=== PATIENT | female | born 1950 | race Caucasian/White ===

== ENCOUNTER 2022-08-16 13:19 | Day surgery (SDC) | payer MEDICARE, OTHER ==
[2022-08-16] MEDS ORDERED: Xylocaine 1% Vial 30 ML PF IJ ONE (13:20)
[2022-08-16] MEDS ORDERED: BUPIVACAINE 0.5% VIAL IJ ONE (13:20)
--- NOTE | 2022-08-16 20:00 | XRAY ---
Indication: Left knee genicular nerve block. Intraoperative fluoroscopy provided for 20 seconds. 2 digital spot image left knee submitted for interpretation demonstrates anterior needle tips projecting medial/lateral supracondylar and medial tibial plateau. Correlate with intraoperative findings/report.
--- NOTE | 2022-08-16 20:00 | XRAY ---
Indication: Right knee genicular nerve block. Intraoperative fluoroscopy provided for 13 seconds. 2 digital spot image right knee submitted for interpretation demonstrates anterior needle tips projecting medial/lateral supracondylar and medial tibial plateau. Correlate with intraoperative findings/report.
--- NOTE | 2022-08-16 20:02 | XRAY ---
13 seconds of fluoroscopy was used in surgery for a right knee genicular nerve block.
--- NOTE | 2022-08-16 20:03 | XRAY ---
20 seconds of fluoroscopy was used in surgery for a left knee genicular nerve block.
== END 2022-08-16 16:20 | disposition home or self-care (01) ==
LOC: SDC-PAIN 13:19
PROVIDERS: ATTEND Psychiatry & Neurology Pain Medicine
DX: M17.0 Bilateral primary osteoarthritis of knee (principal); Z79.899 Other long term (current) drug therapy
CPT/HCPCS: 64454; 73560; 77002; J2001

== ENCOUNTER 2022-08-23 10:01 | Day surgery (SDC) | payer MEDICARE, OTHER ==
[2022-08-23] MEDS ORDERED: XYLOCAINE-MPF 1% 5ML SDV IJ ONE (10:02)
[2022-08-23] MEDS ORDERED: Depo-Medrol 40 MG/ML IM ONE (10:02)
[2022-08-23] MEDS ORDERED: BUPIVACAINE 0.5% VIAL IJ ONE (10:02)
--- NOTE | 2022-08-23 14:03 | XRAY ---
Indication: Right knee genicular nerve ablation. Intraoperative fluoroscopy provided for 35 seconds. 3 digital spot images right knee submitted for interpretation demonstrates anterior needle tips projecting medial/lateral supracondylar and medial tibial plateau. Correlate with intraoperative findings/report.
[2022-08-23] MEDS ORDERED: Lactated Ringers 1,000 ML IV ONE (16:30)
--- NOTE | 2022-08-23 16:44 | XRAY ---
35 seconds of fluoroscopy was used in surgery for a right genicular nerve ablation.
== END 2022-08-23 13:05 | disposition home or self-care (01) ==
LOC: SDC-PAIN 10:01
PROVIDERS: ATTEND Psychiatry & Neurology Pain Medicine
DX: M17.11 Unilateral primary osteoarthritis, right knee (principal)
CPT/HCPCS: 64624; 73560; 77002; J1030

== ENCOUNTER 2022-08-30 13:38 | Day surgery (SDC) | payer MEDICARE, OTHER ==
[2022-08-30] MEDS ORDERED: Depo-Medrol 40 MG/ML IM ONE (13:39)
[2022-08-30] MEDS ORDERED: BUPIVACAINE 0.5% VIAL IJ ONE (13:39)
[2022-08-30] MEDS ORDERED: LIDOCAINE HCL 1% 50 MG/5 ML VL PF IJ ONE (13:39)
[2022-08-30] MEDS ORDERED: Lactated Ringers 1,000 ML IV ONE ×2 (15:57→17:21)
--- NOTE | 2022-08-30 16:44 | XRAY ---
Indication: Left knee genicular nerve ablation. Intraoperative fluoroscopy provided for 23. 4 digital spot images left knee submitted for interpretation demonstrates anterior needle tips projecting medial/lateral supracondylar and medial tibial plateau. Correlate with intraoperative findings/report.
--- NOTE | 2022-08-30 17:23 | XRAY ---
23 seconds of fluoroscopy was used in surgery for a left genicular nerve ablation.
== END 2022-08-30 16:25 | disposition home or self-care (01) ==
LOC: SDC-PAIN 13:38
PROVIDERS: ATTEND Psychiatry & Neurology Pain Medicine
DX: M17.12 Unilateral primary osteoarthritis, left knee (principal); Z79.899 Other long term (current) drug therapy
CPT/HCPCS: 64624; 73560; 77002; J1030; J2001; Q9966

== ENCOUNTER 2023-04-03 05:56 | Day surgery (SDC) | payer MEDICARE, OTHER ==
[2023-04-03] MEDS ORDERED: Epinephrine Preservative Free 1 MG/ML IJ ONE (05:57)
[2023-04-03] MEDS ORDERED: Lactated Ringers 1,000 ML IV ONE (06:17)
[2023-04-03] MEDS ORDERED: NON-FORMULARY ITEM OP ONE (07:00)
[2023-04-03] MEDS ORDERED: cefUROXime sodium 0.005 GM in Sodium Chloride Flush 30 ML*** 0.5 ML IJ ONE (07:00)
[2023-04-03] MEDS ORDERED: TETRACAINE 0.5% STERI-UNIT SOL OP ONE ×2 (07:00)
[2023-04-03] MEDS ORDERED: BETADINE 5% OPHTHALMIC 30 ML OP ONE (07:00)
[2023-04-03] MEDS ORDERED: Lactated Ringers 1,000 ML IV SCH (07:00)
[2023-04-03] MEDS ORDERED: Ak-Dilate OPHTHALMIC*** 1.065 ML, Cyclogyl 1% OPHTH SOL 1.065 ML, GATIFLOXACIN 0.5% OPH... OP ONE ×4 (07:00)
[2023-04-03] MEDS ORDERED: Pepcid 20 MG VIAL IV ONE (07:34)
[2023-04-03] MEDS ORDERED: DIPRIVAN 200 MG/20 ML IV ONE (08:31)
[2023-04-03] MEDS ORDERED: Zofran 4 MG/2 ML VIAL ONE (08:32)
[2023-04-03] MEDS ORDERED: Zofran 4 MG/2 ML VIAL IV PRN (09:00)
[2023-04-03] MEDS ORDERED: ACETAZOLAMIDE 250 MG TABLET PO ONE (09:00)
[2023-04-03 09:02] VITALS: BP 138/97; PULSE 83; O2SAT 96
== END 2023-04-03 09:09 | disposition home or self-care (01) ==
LOC: SDC 05:56
PROVIDERS: ATTEND Ophthalmology
DX: H25.812 Combined forms of age-related cataract, left eye (principal)
CPT/HCPCS: 99100; C1780; J0171; J2405; J2704; A9270-GY

== ENCOUNTER 2023-05-01 09:37 | Day surgery (SDC) | payer MEDICARE, OTHER ==
[~2023-05-01 09:37] MED LIST: Ak-Dilate OPHTHALMIC*** 1.065 ML, Cyclogyl 1% OPHTH SOL 1.065 ML, GATIFLOXACIN 0.5% OPH... OP ONE; BETADINE 5% OPHTHALMIC 30 ML OP ONE; Lactated Ringers 1,000 ML IV SCH; NON-FORMULARY ITEM OP ONE; TETRACAINE 0.5% STERI-UNIT SOL OP ONE; cefUROXime sodium 0.005 GM in Sodium Chloride Flush 30 ML*** 0.5 ML IJ ONE
[2023-05-01] MEDS ORDERED: Pepcid 20 MG VIAL IV ONE ×2 (10:32→10:38)
[2023-05-01] MEDS ORDERED: Zofran 4 MG/2 ML VIAL ONE (10:37)
[2023-05-01] MEDS ORDERED: Lactated Ringers 1,000 ML IV ONE (10:39)
[2023-05-01] MEDS ORDERED: Zofran 4 MG/2 ML VIAL IV PRN (11:30)
[2023-05-01] MEDS ORDERED: ACETAZOLAMIDE 250 MG TABLET PO ONE (11:30)
[2023-05-01] MEDS ORDERED: DIPRIVAN 200 MG/20 ML IV ONE (12:32)
[2023-05-01 12:57] VITALS: RESP 16; TEMP 98.2; O2SAT 94
[2023-05-01 13:09] VITALS: BP 142/72; PULSE 89
[2023-05-01] MEDS ORDERED: Epinephrine Preservative Free 1 MG/ML ONE (15:14)
== END 2023-05-01 13:08 | disposition home or self-care (01) ==
LOC: SDC 09:37
PROVIDERS: ATTEND Ophthalmology
DX: H25.811 Combined forms of age-related cataract, right eye (principal)
CPT/HCPCS: 99100; C1780; J0171; J2405; J2704; A9270-GY

== ENCOUNTER 2023-12-17 19:23 | Emergency (ER) | payer MEDICARE, OTHER | END 2023-12-17 21:28 | disposition left against medical advice (07) | LOC: ED 19:23 | DX: Z53.21 Procedure and treatment not carried out due to patient leaving prior to being seen by health care provider (principal) ==

== ENCOUNTER 2024-08-29 11:31 | Emergency (ER) | payer MEDICARE, OTHER ==
--- NOTE | 2024-08-29 11:42 | ERPHSYRPT ---
- History of Present Illness Time Seen by Provider: 08/29/24 11:42 Source: patient, family Exam Limitations: no limitations Physician History: This is an overweight white female patient who presents to the emergency department by private vehicle accompanied by her significant other with a complaint of dizziness, head pressure (generalized) and nausea. Symptoms began at 8 AM. She denies head injury. She has not had any vomiting or diarrhea. She denies fever. She denies visual changes. She denies speech changes. She has no chest pain and she is not short of breath. She denies a history of TIAs or CVA. She denies history of documented coronary artery disease. Patient has a history of hypertension, anxiety, hypothyroidism, hyperlipidemia, gastroesophageal reflux disease, rheumatoid arthritis and osteoarthritis. Timing/Duration: today Severity: mild (To moderate) Modifying Factors: Improves With: nothing Associated Symptoms: nausea, No vomiting, No abdominal pain, No shortness of breath, No chest pain, No fever, No headaches, No syncope, No seizure Allergies/Adverse Reactions: Penicillins Allergy (Mild, Verified 04/07/24 07:36) Hives meperidine [From Demerol] Allergy (Verified 04/07/24 07:36) pain medications Adverse Reaction (Uncoded 04/07/24 07:36) sensitive Home Medications: ALPRAZolam 0.5 MG [xanAX 0.5 MG] 0.5 mg PO HS 08/26/13 [History] Aspirin EC 81 mg [Ecotrin 81 mg] 81 mg PO DAILY 08/26/13 [History] Amlodipine Besylate [Norvasc] 5 mg PO DAILY 03/27/23 [History] Calcium Carbonate [Calcium] 600 mg PO DAILY 03/27/23 [History] Levothyroxine Sodium [Synthroid] 75 mcg PO DAILY 03/27/23 [History] Lovastatin [Altoprev] 20 mg PO DAILY 03/27/23 [History] Zolpidem Tartrate 3.5 mg SL HS 03/27/23 [History] Celecoxib [Celebrex] 200 mg PO DAILY 04/07/24 [History] Pantoprazole 20 mg [Protonix 20MG Tablet] 20 mg PO DAILY 04/07/24 [History] Hx Tetanus, Diphtheria Vaccination/Date Given: No Hx Influenza Vaccination/Date Given: No Hx Pneumococcal Vaccination/Date Given: No Travel Risk - International Travel Have you traveled outside of the country in past 3 weeks: No - Emerging Infectious Disease Are you exhibiting symptoms associated with any current EIDs: No - Review of Systems Constitutional: Weakness Eyes: No Symptoms Ears, Nose, & Throat: No Symptoms Respiratory: No Symptoms Cardiac: No Symptoms Abdominal/Gastrointestinal: Nausea, No Abdominal Pain, No Vomiting, No Diarrhea, No Constipation, No Appetite Changes Genitourinary Symptoms: No Symptoms Musculoskeletal: No Symptoms Skin: No Symptoms Neurological: Dizziness, Other (Neurolyse head pressure), No Gait Changes, No Speech Changes Psychological: No Symptoms Endocrine: No Symptoms Hematologic/Lymphatic: No Symptoms Immunological/Allergic: No Symptoms All Other Systems: Reviewed and Negative - Past Medical History Pertinent Past Medical History: Yes Neurological History: Other ENT History: No Pertinent History Cardiac History: Hypertension Respiratory History: No Pertinent History Endocrine Medical History: Hypothyroidism Musculoskeletal History: Fractures, Osteoarthritis, Rheumatoid Arthritis GI Medical History: GERD History: No Pertinent History Psycho-Social History: No Pertinent History Female Reproductive Disorders: No Pertinent History Other Medical History: NUMBNESS IN THE R ANTERIOR THIGH. WRIST INJURY. - Past Surgical History Past Surgical History: Yes Neuro Surgical History: No Pertinent History Cardiac: No Pertinent History Respiratory: No Pertinent History Gastrointestinal: Appendectomy, Cholecystectomy Genitourinary: No Pertinent History Musculoskeletal: No Pertinent History Female Surgical History: Hysterectomy Other Surgical History: partial hysterectomy. right wrist plate - Social History Smoking Status: Never smoker Exposure to second hand smoke: No Drug Use: none Patient Lives Alone: No - Nursing Vital Signs Nursing Vital Signs: Initial Vital Signs Temperature 96.5 F 08/29/24 11:35 Pulse Rate 89 08/29/24 11:35 Respiratory Rate 18 08/29/24 11:35 Blood Pressure 175/92 08/29/24 11:35 O2 Sat by Pulse Oximetry 98 08/29/24 11:35 Pain Scale Pain Intensity 5 - Physical Exam General Appearance: no apparent distress, alert, anxiety, obese Eye Exam: PERRL/EOMI, eyes nml inspection Ears, Nose, Throat Exam: normal ENT inspection, moist mucous membranes Neck Exam: normal inspection, non-tender, supple, full range of motion Respiratory Exam: normal breath sounds, lungs clear, airway intact, No chest tenderness, No respiratory distress Cardiovascular Exam: regular rate/rhythm, normal heart sounds, normal peripheral pulses Gastrointestinal/Abdomen Exam: soft, normal bowel sounds, No tenderness Pelvic Exam: not done Rectal Exam: not done Back Exam: normal inspection, normal range of motion, No CVA tenderness, No vertebral tenderness Extremity Exam: normal inspection, normal range of motion, pelvis stable Neurologic Exam: alert, oriented x 3, cooperative, bookkeeper receptionist II-XII nml as tested, nml cerebellar function, nml station & gait, sensation nml Skin Exam: normal color, warm, dry Lymphatic Exam: No adenopathy SpO2 Interpretation: normal O2 Delivery: Room Air - Course Nursing assessment & vital signs reviewed: Yes EKG Interpreted by Me: RATE (83), Sinus Rhythm, NORMAL AXIS, NORMAL INTERVALS, N ORMAL QRS, Other (No acute ischemic changes. QTc is 442) Ordered Tests: Active Orders 24 hr Category Date Time Status Agents' Records Clerk STAT Care 08/29/24 11:50 Active EKG-ER Only STAT Care 08/29/24 11:50 Active IV Insertion STAT Care 08/29/24 11:50 Active HEAD WITHOUT CONTRAST [CT] Stat Exams 08/29/24 11:50 Completed CBC W DIFF Stat Lab 08/29/24 12:00 Completed CMP Stat Lab 08/29/24 12:00 Completed MAGNESIUM Stat Lab 08/29/24 12:00 Completed POCT GLUCOSE Stat Lab 08/29/24 11:49 Completed TROPONIN Q4H Lab 08/29/24 12:00 Completed TROPONIN Q4H Lab 08/29/24 16:00 Ordered TROPONIN Q4H Lab 08/29/24 20:00 Ordered TSH, 3RD Generation Stat Lab 08/29/24 12:00 Completed UA W/RFX UR CULTURE Stat Lab 08/29/24 11:54 Completed Medication Summary Discontinued Medications Generic Name Dose Route Start Last Admin Trade Name Freq PRN Reason Stop Dose Admin Ondansetron HCl 4 mg 08/29/24 11:50 08/29/24 11:56 Ondansetron Hcl 4 Mg/2 Ml Vial IV 08/29/24 11:51 4 mg STAT ONE Administration Ondansetron HCl Confirm 08/29/24 11:55 Ondansetron Hcl 4 Mg/2 Ml Vial Administered 08/29/24 11:56 Dose 4 mg .ROUTE .STHemosphere-Scoreloop ONE Lab/Rad Data: Laboratory Result Diagrams 08/29/24 12:00 08/29/24 12:00 Laboratory Results 08/29/24 08/29/24 08/29/24 Range/Units 12:00 12:00 12:00 WBC (3.98-10.04) x10^3/uL RBC (3.93-5.22) x10^6/uL Hgb (11.2-15.7) g/dL Hct (34.1-44.9) % MCV (79.4-94.8) fL MCH (25.6-32.2) pg MCHC (32.2-35.5) g/dL RDW (11.7-14.4) % Plt Count (182-369) x10^3/uL MPV (9.4-12.3) fL Gran % (34.0-71.1) % Immature Gran % (Auto) (0.001-0.429) % Nucleat RBC Rel Count (0.00-0.2) % Eos # (Auto) (0.04-0.36) x10^3/uL Immature Gran # (Auto) (0.001-0.031) x10^3u/L Absolute Lymphs (auto) (1.18-3.74) x10^3/uL Absolute Monos (auto) (0.24-0.86) x10^3/uL Absolute Nucleated RBC (0.00-0.012) x10^3u/L Lymphocytes % (19.3-51.7) % Monocytes % (4.7-12.5) % Eosinophils % (0.7-5.8) % Basophils % (0.1-1.2) % Absolute Granulocytes (1.56-6.13) x10^3/uL Basophils # (0.01-0.08) x10^3/uL Sodium 137 (135-145) mmol/L Potassium 4.5 (3.5-5.1) mmol/L Chloride 105 (98-107) mmol/L Carbon Dioxide 26 (22-30) mmol/L Anion Gap 10.5 (5-15) MEQ/L BUN 17 (7-17) mg/dL Creatinine 0.82 (0.52-1.04) mg/dL Estimated GFR 75.0 ML/MIN Glucose 116 H (74-106) mg/dL POC Glucometer (74 to 106) mg/dL Calcium 9.8 (8.4-10.2) mg/dL Magnesium 1.9 (1.6-2.3) mg/dL Total Bilirubin 0.60 (0.2-1.3) mg/dL AST 34 (14-36) U/L ALT 21 (0-35) U/L Alkaline Phosphatase 136 H (38-126) U/L Troponin I < 0.012 (0.000-0.033) ng/mL Serum Total Protein 7.5 (6.3-8.2) g/dL Albumin 4.4 (3.5-5.0) g/dL Free T4 1.34 (0.78-2.19) ng/dL TSH 3rd Generation 2.706 (0.470-4.680) mIU/L Urine Color (Yellow) Urine Appearance (Clear) Urine pH (4.6-8.0) Ur Specific [place] (1.005-1.030) Urine Protein (Negative) Urine Glucose (UA) (Negative) mg/dL Urine Ketones (Negative) Urine Blood (Negative) Urine Nitrite (Negative) Urine Bilirubin (Negative) Urine Urobilinogen (0.2) mg/dL Ur Leukocyte Esterase (Negative) U Hyaline Cast (Auto) (0-2) /LPF Urine Microscopic RBC (0-5) /HPF Urine Microscopic WBC (0-5) /HPF Ur Epithelial Cells (None Seen) /HPF Urine Bacteria (None Seen) /HPF Urine Culture Reflexed (NO) 08/29/24 08/29/24 08/29/24 Range/Units 12:00 11:54 11:49 WBC 7.7 (3.98-10.04) x10^3/uL RBC 4.66 (3.93-5.22) x10^6/uL Hgb 12.9 (11.2-15.7) g/dL Hct 39.6 (34.1-44.9) % MCV 85.0 (79.4-94.8) fL MCH 27.7 (25.6-32.2) pg MCHC 32.6 (32.2-35.5) g/dL RDW 13.2 (11.7-14.4) % Plt Count 288 (182-369) x10^3/uL MPV 9.9 (9.4-12.3) fL Gran % 68.1 (34.0-71.1) % Immature Gran % (Auto) 0.3 (0.001-0.429) % Nucleat RBC Rel Count 0.0 (0.00-0.2) % Eos # (Auto) 0.09 (0.04-0.36) x10^3/uL Immature Gran # (Auto) 0.02 (0.001-0.031) x10^3u/L Absolute Lymphs (auto) 1.81 (1.18-3.74) x10^3/uL Absolute Monos (auto) 0.50 (0.24-0.86) x10^3/uL Absolute Nucleated RBC 0.00 (0.00-0.012) x10^3u/L Lymphocytes % 23.5 (19.3-51.7) % Monocytes % 6.5 (4.7-12.5) % Eosinophils % 1.2 (0.7-5.8) % Basophils % 0.4 (0.1-1.2) % Absolute Granulocytes 5.26 (1.56-6.13) x10^3/uL Basophils # 0.03 (0.01-0.08) x10^3/uL Sodium (135-145) mmol/L Potassium (3.5-5.1) mmol/L Chloride (98-107) mmol/L Carbon Dioxide (22-30) mmol/L Anion Gap (5-15) MEQ/L BUN (7-17) mg/dL Creatinine (0.52-1.04) mg/dL Estimated GFR ML/MIN Glucose (74-106) mg/dL POC Glucometer 108 H (74 to 106) mg/dL Calcium (8.4-10.2) mg/dL Magnesium (1.6-2.3) mg/dL Total Bilirubin (0.2-1.3) mg/dL AST (14-36) U/L ALT (0-35) U/L Alkaline Phosphatase (38-126) U/L Troponin I (0.000-0.033) ng/mL Serum Total Protein (6.3-8.2) g/dL Albumin (3.5-5.0) g/dL Free T4 (0.78-2.19) ng/dL TSH 3rd Generation (0.470-4.680) mIU/L Urine Color Yellow (Yellow) Urine Appearance Clear (Clear) Urine pH 7.0 (4.6-8.0) Ur Specific [place] 1.010 (1.005-1.030) Urine Protein Negative (Negative) Urine Glucose (UA) Negative (Negative) mg/dL Urine Ketones Negative (Negative) Urine Blood Negative (Negative) Urine Nitrite Negative (Negative) Urine Bilirubin Negative (Negative) Urine Urobilinogen 0.2 (0.2) mg/dL Ur Leukocyte Esterase Trace A (Negative) U Hyaline Cast (Auto) NONE SEEN (0-2) /LPF Urine Microscopic RBC 0-2 (0-5) /HPF Urine Microscopic WBC 0-2 (0-5) /HPF Ur Epithelial Cells None Seen (None Seen) /HPF Urine Bacteria None Seen (None Seen) /HPF Urine Culture Reflexed NO (NO) - Progress Progress Note: 08/29/24 11:59 My medical decision making of the assignment of moderate complexity to this patient's workup today is based on review of the patient's past medical history, review of the patient's medication list, reviewed patient drug allergy list, history present illness and physical findings on examination. The workup in this patient includes placement of an intravenous line, twelve-lead EKG, troponin level, urinalysis, magnesium level, CBC, CMP, free T4 and THS levels, CT scan of the head without contrast. Differential diagnosis includes but is not limited to dehydration, urinary tract infection, arrhythmia, myocardial infarction, sinusitis, acute intracranial abnormality, thyroid level abnormalities, electrolyte abnormalities 08/29/24 12:57 CT scan of the head without contrast was interpreted by the radiologist and I reviewed the impression. The impression states normal CT scan head without contrast. 08/29/24 13:22 I interpreted the patient's laboratory data results. Based on the laboratory data results, there are no acute, emergent medical issues. Patient states her nausea is nearly completely gone. Her dizziness is improving but not completely gone at this time. We will provide her with 25 mg oral hydroxyzine and then slowly have her set up, then stand up, then ambulate her. I will also send a prescription remotely to her pharmacy for both Zofran and ODT and hydroxyzine for treating dizziness. Patient's systolic blood pressure is 134 at this time. Counseled pt/family regarding: lab results, diagnosis, rad results Medical Desision Making - Independent Historian Additional History obtained from: Spouse - Diagnostic Testing Diagnostic test were ordered, analyzed, and reviewed by me: Yes Radiological Interpretation: Reviewed by me, Teleradiologist Report - Risk of complications Low Risk: Low risk of morbidity from additional dx testing or treatment - Departure Departure Disposition: Home Clinical Impression: Dizziness Condition: Stable Critical Care Time: No Referrals: LILIA EDMOND MD [Primary Care Provider] - Follow up/PCP as directed Additional Instructions: Drink plenty of fluids. Take your medication as prescribed. Call your primary care provider today, 08/29/2024, to make an appointment to be seen in the next 3 to 5 days. Return to the emergency department if your symptoms recur despite outpatient treatment. Prescriptions: Ondansetron ODT 4 MG [Zofran Odt 4 mg] 4 mg PO Q6H PRN PRN #10 tablet PRN Reason: Vomiting Meclizine HCl 25 mg [Antivert 25 mg] 25 mg PO Q8H PRN #10 tablet PRN Reason: Dizziness
[2024-08-29 11:45] VITALS: RESP 18; TEMP 96.5
[2024-08-29] MEDS ORDERED: Zofran 4 MG/2 ML VIAL ONE (11:55)
[2024-08-29] MEDS: Zofran 4 MG/2 ML VIAL IV ONE (11:56)
[2024-08-29 12:20] LABS: Appearance Clear (Clear); Bacteria None Seen /HPF (None Seen); Bilirubin Negative (Negative); Blood Negative (Negative); Epithelial Cells None Seen /HPF (None Seen); Glucose, Urine Negative (Negative); Hyaline Casts NONE SEEN /LPF (0-2); Ketones Negative (Negative); Leukocyte Esterase Trace (Negative); Nitrite Negative (Negative); Protein,Urine Dip Negative (Negative); RBC 0-2 /HPF (0-5); Urobilinogen 0.2 mg/dL (0.2); WBC 0-2 /HPF (0-5)
[2024-08-29 12:21] LABS: Absolute Neutrophil Ct (ANC) 5.26 x10^3/uL (1.56-6.13); BASOPHIL % 0.4 % (0.1-1.2); Basophil (Absolute #) 0.03 x10^3/uL (0.01-0.08); Eosinophil % 1.2 % (0.7-5.8); Eosinophil (Absolute #) 0.09 x10^3/uL (0.04-0.36); Hematocrit 39.6 % (34.1-44.9); Hemoglobin 12.9 g/dL (11.2-15.7); IMMATURE GRAN # 0.02 x10^3u/L (0.001-0.031); IMMATURE GRAN % 0.3 % (0.001-0.429); Lymphocyte (Absolute #) 1.81 x10^3/uL (1.18-3.74); Lymphocytes % 23.5 % (19.3-51.7); Mean Corpuscular Hemoglobin 27.7 pg (25.6-32.2); Mean Corpuscular Hgb Concent. 32.6 g/dL (32.2-35.5); Mean Platelet Volume 9.9 fL (9.4-12.3); Monocytes % 6.5 % (4.7-12.5); Neutrophil % 68.1 % (34.0-71.1); Platelet Count 288 x10^3/uL (182-369); Red Blood Count 4.66 x10^6/uL (3.93-5.22); Red Cell Distribution Width 13.2 % (11.7-14.4); White Blood Count 7.7 x10^3/uL (3.98-10.04)
--- NOTE | 2024-08-29 12:50 | XRAY ---
Indication: Dizziness. Head pressure. Multiple contiguous axial images obtained through the head without contrast. Comparison: None Normal appearing brain parenchyma, ventricles, and bony calvarium for patient's age. Visualized paranasal sinuses and mastoid air cells are clear. Impression: Normal CT head without contrast exam.
[2024-08-29 12:56] LABS: ALBUMIN 4.4 g/dL (3.5-5.0); ANION GAP 10.5 MEQ/L (5-15); BILIRUBIN,TOTAL 0.6 mg/dL (0.2-1.3); Calcium 9.8 mg/dL (8.4-10.2); Creatinine 1 0.82 mg/dL (0.52-1.04); MAGNESIUM 1.9 mg/dL (1.6-2.3); Potassium 4.5 mmol/L (3.5-5.1); TSH, 3RD Generation 2.706 mIU/L (0.470-4.680); Total Protein 7.5 g/dL (6.3-8.2)
[2024-08-29] MEDS ORDERED: ATARAX 25 MG ONE (13:23)
[2024-08-29] MEDS: ATARAX 25 MG PO ONE (13:25)
[2024-08-29 13:36] VITALS: BP 149/84; PULSE 68; O2SAT 96
== END 2024-08-29 13:48 | disposition home or self-care (01) ==
LOC: ED 11:31
DX: R42 Dizziness and giddiness (principal); R11.0 Nausea; Z79.899 Other long term (current) drug therapy
CPT/HCPCS: 36415; 70450; 80053; 81001; 82947; 83735; 84439; 84443; 84484; 85025; 93005; 93041; 96374; 99284; 99285; J2405; A9270-GY

== ENCOUNTER 2025-07-15 12:50 | Day surgery (SDC) | payer MEDICARE, OTHER ==
[2025-07-15] MEDS ORDERED: LIDOCAINE HCL 2% 100 MG/5 ML IJ ONE (12:51)
[2025-07-15] MEDS ORDERED: propofoL IV ONE (14:46)
[2025-07-15] MEDS ORDERED: Lactated Ringers 1,000 ML IV ONE (15:54)
--- NOTE | 2025-07-15 16:43 | XRAY ---
Indication: Left C3-C5 MBB. Intraoperative fluoroscopy provided for 17 seconds. 3 digital spot images submitted for interpretation demonstrates posterior needle tips projecting over expected left C3-C5 nerve roots. Correlate with intraoperative findings/report.
--- NOTE | 2025-07-15 16:59 | XRAY ---
17 seconds of fluoroscopy was used in surgery for a left C3-C5 MBB.
== END 2025-07-15 15:22 | disposition home or self-care (01) ==
LOC: SDC-PAIN 12:50
PROVIDERS: ATTEND Psychiatry & Neurology Pain Medicine
DX: M47.812 Spondylosis without myelopathy or radiculopathy, cervical region (principal)

== ENCOUNTER 2025-07-20 15:34 | Emergency (ER) | payer MEDICARE, OTHER ==
[2025-07-20 16:12] VITALS: RESP 18; TEMP 97
--- NOTE | 2025-07-20 16:39 | XRAY ---
Indication: Fall. Comparison: None 3 view left wrist demonstrates nondisplaced comminuted fracture distal radius with intra-articular extension and soft tissue swelling. Chronic findings including osteopenia and moderate/advanced 1st metacarpal multangular scaphoid degenerative changes with heterotopic ossifications.
--- NOTE | 2025-07-20 16:51 | ERPHSYRPT ---
- History of Present Illness Patient Subjective Stated Complaint: PT HERE PAIN TO LEFT WRIST AFTER TRIPPING WHILE WORKING OUTSIDE TODAY, SHE ALSO CO PAIN TO LEFT HIP BUT REFUSES TO GET UNDRESSED OR HAVE HIP LOOKED AT, Triage Nursing Assessment: PT ALERT, WALKED IN, RESP EASY, SKIN W/D/P. HAS SWELLING AND BRUISING TO LEFT WRIST, STRONG RADIAL PULSE, NAILBEDS PINK Physician History: Left wrist injury, patient fell while working outside this morning, she is continue having swelling and tenderness to her wrist, she also fell on her left butt cheek but she was able to stand up and walk around, She denied any head injury Occurred: this morning Method of Injury: fell Severity of Pain-Max: moderate Severity of Pain-Current: moderate Extremities Pain Location: wrist: left Allergies/Adverse Reactions: Penicillins Allergy (Mild, Verified 07/20/25 15:58) Hives meperidine [From Demerol] Allergy (Verified 07/20/25 15:58) pain medications Adverse Reaction (Uncoded 07/20/25 15:58) sensitive Home Medications: ALPRAZolam 0.5 MG [xanAX 0.5 MG] 0.5 mg PO HS 08/26/13 [History] Amlodipine Besylate [Norvasc] 5 mg PO DAILY 03/27/23 [History] Calcium Carbonate [Calcium] 600 mg PO DAILY 03/27/23 [History] Levothyroxine Sodium [Synthroid] 75 mcg PO DAILY 03/27/23 [History] Lovastatin [Altoprev] 20 mg PO DAILY 03/27/23 [History] Zolpidem Tartrate 3.5 mg SL HS 03/27/23 [History] Celecoxib [Celebrex] 200 mg PO DAILY 04/07/24 [History] Pantoprazole 20 mg [Protonix 20MG Tablet] 20 mg PO DAILY 04/07/24 [Hi story] Hx Tetanus, Diphtheria Vaccination/Date Given: No Hx Influenza Vaccination/Date Given: No Hx Pneumococcal Vaccination/Date Given: No Immunizations Up to Date: Yes Travel Risk - International Travel Have you traveled outside of the country in past 3 weeks: No - Emerging Infectious Disease Are you exhibiting symptoms associated with any current EIDs: No - Past Medical History Pertinent Past Medical History: Yes Neurological History: Other ENT History: No Pertinent History Cardiac History: Hypertension Respiratory History: No Pertinent History Endocrine Medical History: Hypothyroidism Musculoskeletal History: Fractures, Osteoarthritis, Rheumatoid Arthritis GI Medical History: GERD History: No Pertinent History Psycho-Social History: No Pertinent History Female Reproductive Disorders: No Pertinent History Other Medical History: NUMBNESS IN THE R ANTERIOR THIGH. WRIST INJURY. - Past Surgical History Past Surgical History: Yes Neuro Surgical History: No Pertinent History Cardiac: No Pertinent History Respiratory: No Pertinent History Gastrointestinal: Appendectomy, Cholecystectomy Genitourinary: No Pertinent History Musculoskeletal: No Pertinent History Female Surgical History: Hysterectomy Other Surgical History: partial hysterectomy. right wrist plate - Social History Smoking Status: Never smoker Exposure to second hand smoke: No Drug Use: none - Social Determinants of Health Will the patient participate in the screening: Declined to provide - Nursing Vital Signs Nursing Vital Signs: Initial Vital Signs Temperature 97 F 07/20/25 16:11 Pulse Rate 78 07/20/25 16:11 Respiratory Rate 18 07/20/25 16:11 Blood Pressure 139/83 07/20/25 16:11 O2 Sat by Pulse Oximetry 98 07/20/25 16:11 Pain Scale Pain Intensity 9 - Physical Exam General Appearance: no apparent distress, alert Eyes, Ears, Nose, Throat Exam: normal ENT inspection Neck Exam: normal inspection, non-tender, supple, full range of motion Wrist Exam: deformity, limited ROM, pain, soft tissue tenderness Neuro/Tendon Exam: normal sensation Mental Status Exam: alert, oriented x 3, cooperative Skin Exam: normal color, warm, dry SpO2 Interpretation: normal SpO2: 98 O2 Delivery: Room Air Procedures - Splinting Time of Procedure: 16:54 Location of Splint: Left, Wrist Type of Splint: Orthoglass Short Arm Splint Splint Applied By: ED Nurse Pre-Proc Neuro Vasc Exam: normal Post-Proc Neuro Vasc Exam: neurovascular intact Ordered Tests: Active Orders 24 hr Category Date Time Status WRIST (MIN 3 VIEWS) Stat Exams 07/20/25 16:13 Completed - Progress Progress Note: 07/20/25 16:53 Discussed x-ray findings, she was placed in a short arm posterior mold (Ortho- Glass), she will follow-up in orthopedic walk-in clinic, She requested tramadol for pain control - Departure Departure Disposition: Home Clinical Impression: Wrist fracture, left Qualifiers: Encounter type: initial encounter Fracture type: closed Qualified Code(s): S62.102A - Fracture of unspecified carpal bone, left wrist, initial encounter for closed fracture Condition: Stable Critical Care Time: No Referrals: AMENA ENCINAS MD [ACTIVE STAFF, ORTHOPEDICS] - Follow up/PCP as directed Instructions: Wrist Fracture Additional Instructions: Orthopedic walk-in clinic this week Prescriptions: Tramadol HCl/Acetaminophen [Tramadol-Acetaminophn 37.5-325] 1 each PO Q6H PRN #16 tablet PRN Reason: Pain
[2025-07-20 17:03] VITALS: BP 139/73; PULSE 79; O2SAT 97
== END 2025-07-20 17:20 | disposition home or self-care (01) ==
LOC: ED 15:34
DX: S62.102A Fracture of unspecified carpal bone, left wrist, initial encounter for closed fracture (principal); W01.0XXA Fall on same level from slipping, tripping and stumbling without subsequent striking against object, initial encounter; I10 Essential (primary) hypertension; Z79.891 Long term (current) use of opiate analgesic; Z79.899 Other long term (current) drug therapy